=== PATIENT | female | born 1975 ===

== ENCOUNTER 2016-09-28 14:05 | Emergency (ER) | payer OTHER ==
[2016-09-28 14:13] VITALS: O2SAT 100
[2016-09-28 14:46] LABS: RBC URINE 1 /hpf (0-3); URINE BILIRUBIN NEGATIVE (NEGATIVE); URINE BLOOD 2+ (NEGATIVE); URINE COLOR Yellow (YELLOW); URINE GLUCOSE (UA) NORMAL (Normal); URINE KETONE NEGATIVE (NEGATIVE); URINE LEUKOCYTE ESTERASE NEG Leu/uL (Negative); URINE PROTEIN NEGATIVE (NEGATIVE); URINE UROBILINOGEN NORMAL mg/dL (0.2-1.0); WBC URINE 1 /hpf (0-5)
[2016-09-28 14:59] LABS: BASO # 0.1 K/uL (0.0-0.2); BASO % 1.1 % (0.0-2.0); EOS # 0.2 K/uL (0.0-0.7); EOS % 3.7 % (0.0-4.0); HEMATOCRIT 27.9 % (34.0-47.0); LYMPH # 1.8 K/uL (1.0-4.3); LYMPH % 26.6 % (20.0-40.0); MEAN CELL VOLUME 71.5 fL (81.0-99.0); MEAN CORPUSCULAR HEMOGLOBIN 22.8 pg (27.0-31.0); MEAN CORPUSCULAR HGB CONC 31.8 g/dL (33.0-37.0); MEAN PLATELET VOLUME 7.4 fL (7.2-11.7); MONO # 0.5 K/uL (0.0-0.8); MONO % 8.3 % (0.0-10.0); RED CELL DISTRIBUTION WIDTH 19.1 % (11.5-14.5); WHITE BLOOD COUNT 6.6 K/uL (4.8-10.8)
[2016-09-28 15:06] LABS: CHLORIDE 101 mmol/L (98-107); POTASSIUM 3.6 mmol/L (3.6-5.2); SODIUM 138 mmol/L (132-148)
[2016-09-28 15:08] LABS: GFR AFRICAN-AMERICAN > 60
[2016-09-28 15:09] LABS: ALB/GLOB RATIO 1.2 (1.0-2.1); ALKALINE PHOSPHATASE 74 U/L (38-126); ALT/SGPT 17 U/L (9-52); AST/SGOT 16 U/L (14-36); BILIRUBIN,TOTAL 0.3 mg/dL (0.2-1.3); BLOOD UREA NITROGEN 17 mg/dL (7-17); CALCIUM 8.1 mg/dl (8.6-10.4); CARBON DIOXIDE 27 mmol/L (22-30); GLUCOSE,RANDOM 101 mg/dL (65-105)
--- NOTE | 2016-09-28 15:17 | C.PDOC ---
History Of Present Illness 41-year-old female, presents to the emergency department with complaints of vaginal bleeding. Patient states that three weeks ago, she had her normal period , that stopped and after 2-3 days, she started bleeding again. Initially, she notes spotting, but over the past few days the bleeding has become heavier, She woke up today and states that there were clots in her blood, resulting in her coming to the ED for evaluation. Patient is pending OBGYN appointment in two days. Time Seen by Provider: 09/28/16 14:21 Chief Complaint (Nursing): Female Genitourinary History Per: Patient History/Exam Limitations: no limitations Past Medical History Reviewed: Historical Data, Nursing Documentation, Vital Signs Vital Signs: Last Vital Signs Temp 98.1 F 09/28/16 14:12 Pulse 81 09/28/16 14:12 Resp 18 09/28/16 14:12 BP 105/67 09/28/16 14:12 Pulse Ox 100 09/28/16 15:42 Family History: States: No Known Family Hx - Social History Hx Alcohol Use: No Hx Substance Use: No - Immunization History Hx Tetanus Toxoid Vaccination: No Hx Influenza Vaccination: No Hx Pneumococcal Vaccination: No Review Of Systems Except As Marked, All Systems Reviewed And Found Negative. Constitutional: Negative for: Fever, Chills Respiratory: Negative for: Shortness of Breath Gastrointestinal: Positive for: Abdominal Pain Genitourinary: Positive for: Vaginal Bleeding Musculoskeletal: Negative for: Back Pain Skin: Negative for: Rash Neurological: Negative for: Weakness, Numbness, Headache, Dizziness Physical Exam - Physical Exam Appears: Non-toxic, No Acute Distress Skin: Warm, Dry, No Rash Eye(s): bilateral: Normal Inspection Nose: Normal Oral Mucosa: Moist Lips: Normal Appearing Neck: Normal ROM Cardiovascular: Rhythm Regular, No Murmur Respiratory: Normal Breath Sounds, No Accessory Muscle Use Gastrointestinal/Abdominal: Soft, Tenderness (mild, suprapubic.), No Guarding, No Rebound Pelvic: No Cervical Motion Tenderness, No Cervix Open, No Tender Uterus, Other ( No active bleeding. blood visualized in vault) Extremity: Normal ROM Neurological/Psych: Oriented x3 ED Course And Treatment - Laboratory Results Result Diagrams: 09/28/16 14:55 09/28/16 14:55 Lab Interpretation: Abnormal (Hgb 8.9 but patient is asymptomatic) O2 Sat by Pulse Oximetry: 100 Pulse Ox Interpretation: Normal Reevaluation Time: 15:59 Reassessment Condition: Unchanged (Patient remains comfortable and symptomatic in ED.) Disposition Counseled Patient/Family Regarding: Studies Performed, Diagnosis, Need For Followup - Disposition Referrals: [facility] [Outside] Disposition: HOME/ ROUTINE Disposition Time: 15:59 Condition: STABLE Additional Instructions: Keep your appointment with your white washer on Friday as scheduled. Start a vitamin with iron daily. Instructions: Dysfunctional Uterine Bleeding (ED), Anemia (ED) Print Language: MOROCCAN - Clinical Impression Clinical Impression: Abnormal vaginal bleeding, Anemia - Scribe Statement The provider has reviewed the documentation as recorded by the Virginia Schneider All medical record entries made by the Virginia were at my direction and personally dictated by me. I have reviewed the chart and agree that the record accurately reflects my personal performance of the history, physical exam, medical decision making, and the department course for this patient. I have also personally directed, reviewed, and agree with the discharge instructions and disposition.
[2016-09-28 16:09] VITALS: BP 119/73; PULSE 73; RESP 17; TEMP 97.9
== END 2016-09-28 16:15 | disposition home or self-care (01) ==
LOC: C.ER 14:05
DX: N93.9 Abnormal uterine and vaginal bleeding, unspecified (principal); D64.9 Anemia, unspecified